=== PATIENT | female | born 1970 | race Caucasian/White ===

== ENCOUNTER → 2016-11-05 | Outpatient (CLI) | payer BC ==
[2016-11-05 17:01] LABS: BASO ABS # 0.08 K/uL (0-0.2); COMPLETE YES; EOS % 2.7 %; HEMATOCRIT 41.2 % (37-47); IG% 0.1 %; LYMPH % 29.4 %; LYMPH ABS # 2.29 K/uL (1.2-3.4); MEAN CELL VOLUME 90.4 fL (80-100); MEAN CORPUSCULAR HEMOGLOBIN 30.7 pg (25-34); MEAN PLATELET VOLUME 11.4 fL (7.4-10.4); MONO % 7.6 %; NEUT % 59.2 %; PLATELET COUNT 231 K/uL (130-400); RED BLOOD COUNT 4.56 M/uL (4.2-5.4)
[2016-11-05 17:07] LABS: ALT/SGPT 18 U/L (12-78); BLOOD UREA NITROGEN 7 mg/dl (7-18); BUN/CREATININE RATIO 8.3 (10-20); C-REACTIVE PROTEIN < 0.29 mg/dl (0-0.29); CARBON DIOXIDE 29 mmol/L (21-32); CHLORIDE 108 mmol/L (98-107); CREATININE 0.89 mg/dl (0.60-1.20); GLUCOSE 78 mg/dl (70-99); POTASSIUM 3.8 mmol/L (3.5-5.1); SODIUM 140 mmol/L (136-145); URIC ACID 3.6 mg/dl (2.6-7.2)
[2016-11-05 17:16] LABS: ALB/GLOB RATIO 1.1 (0.9-2); ALKALINE PHOSPHATASE 58 U/L (45-117); AST/SGOT 13 U/L (15-37); RHEUMATOID FACTOR < 10.0 U/mL (0-15); THYROID STIMULATING HORMONE 0.565 uIu/ml (0.300-4.500)
[2016-11-05 21:31] LABS: LYME DISEASE AB IGG NEG (NEG); LYME DISEASE AB IGM NEG (NEG)
[2016-11-11 18:18] LABS: CYCLIC CITRULLINATED PEPT IGG <16 UNITS (<20)
== END | disposition home or self-care (01) ==
LOC: C.LABBC 13:09
PROVIDERS: ATTEND Nurse Practitioner Family
DX: R61 Generalized hyperhidrosis (principal); M25.539 Pain in unspecified wrist

== ENCOUNTER → 2016-11-13 | Outpatient (CLI) | payer BC | END | disposition home or self-care (01) | LOC: C.LAB1850 16:12 | PROVIDERS: ATTEND Nurse Practitioner Family | DX: E28.0 Estrogen excess (principal) ==

== ENCOUNTER → 2016-11-28 | Outpatient (CLI) | payer BC | END | disposition home or self-care (01) | LOC: C.PAPS 15:18 | PROVIDERS: ATTEND Obstetrics & Gynecology | DX: Z01.419 Encounter for gynecological examination (general) (routine) without abnormal findings (principal) ==

== ENCOUNTER → 2016-12-15 | Outpatient (CLI) | payer BC | END | disposition home or self-care (01) | LOC: C.LABBC 08:40 | PROVIDERS: ATTEND Obstetrics & Gynecology | DX: E28.0 Estrogen excess (principal) ==

== ENCOUNTER → 2017-02-05 | Outpatient (CLI) | payer BC | END | disposition home or self-care (01) | LOC: C.LABBC 14:22 | PROVIDERS: ATTEND Nurse Practitioner Family | DX: R61 Generalized hyperhidrosis (principal) ==

== ENCOUNTER → 2017-04-02 | Outpatient (CLI) | payer BC ==
[2017-04-07 21:31] LABS: BEEF CLASS 0; BEEF IGE <0.10 KU/L; CHOCOLATE CLASS 0; CHOCOLATE IGE <0.10 KU/L; CLAM CLASS 0; CLAM IGE <0.10 KU/L; CORN CLASS 0; CORN IGE <0.10 KU/L; CRAB CLASS 0; CRAB IGE <0.10 KU/L; EGG MIX CLASS 0; EGG MIX IGE <0.10 KU/L; GLIADIN DEAMIDATED IgA AB 3 UNITS (<20); GLIADIN DEAMIDATED IgG AB 3 UNITS (<20); LOBSTER CLASS 0; LOBSTER IGE <0.10 KU/L; PEANUT IGE <0.10 KU/L; PORK CLASS 0; PORK IGE <0.10 KU/L; RETICULIN IgA AB Negative (Negative); SHRIMP CLASS 0; SOY CLASS 0; SOY IGE <0.10 KU/L; WHEAT CLASS 0/1; WHEAT IGE 0.12 KU/L
== END | disposition home or self-care (01) ==
LOC: C.LAB1850 16:08
PROVIDERS: ATTEND Dermatology
DX: R21 Rash and other nonspecific skin eruption (principal)

== ENCOUNTER → 2017-04-02 | Outpatient (CLI) | payer BC | END | disposition home or self-care (01) | LOC: C.LABSPEC 12:55 | PROVIDERS: ATTEND Dermatology | DX: R21 Rash and other nonspecific skin eruption (principal) ==

== ENCOUNTER 2018-01-14 11:15 | Emergency (ER) | payer BC ==
[~2018-01-14] VITALS: Ht 167.6 cm; Wt 56.0 kg
[2018-01-14 11:43] VITALS: TEMP 36.7; Ht 167.6 cm; Wt 56.0 kg
[2018-01-14 12:17] LABS: BASO % 0.4 %; BASO ABS # 0.04 K/uL (0-0.2); EOS % 0.6 %; EOS ABS # 0.06 K/uL (0-0.5); HEMATOCRIT 43.8 % (37-47); HEMOGLOBIN 14.8 g/dL (12.0-16.0); IG# 0.04 K/uL (0.00-0.02); LYMPH % 10.7 %; LYMPH ABS # 1.03 K/uL (1.2-3.4); MEAN CELL VOLUME 89.9 fL (80-100); MEAN CORPUSCULAR HEMOGLOBIN 30.4 pg (25-34); MEAN CORPUSCULAR HGB CONC 33.8 g/dl (32-36); MEAN PLATELET VOLUME 10.7 fL (7.4-10.4); MONO % 4.4 %; MONO ABS # 0.42 K/uL (0.11-0.59); NEUT % 83.5 %; NEUT ABS # 8.05 K/uL (1.4-6.5); PLATELET COUNT 225 K/uL (130-400); RED CELL DISTRIBUTION WIDTH CV 13.5 % (11.5-14.5); RED CELL DISTRIBUTION WIDTH SD 44.3 fL (36.4-46.3); WHITE BLOOD COUNT 9.64 K/uL (4.8-10.8)
[2018-01-14] MEDS ORDERED: DiphenhydrAMINE HCL 50 MG/ML VIAL IV STA (12:49)
[2018-01-14] MEDS ORDERED: SODIUM CHLORIDE 0.9% 1000ML 2,000 ML IV STA (12:49)
[2018-01-14] MEDS ORDERED: METOCLOPRAMIDE HCL INJ 5 MG/ML 2 ML VIAL IV STA (12:49)
--- NOTE | 2018-01-14 12:59 | EMERGENCY ROOM VISIT NOTE ---
History Report prepared by Riana: Clement Correa Under the Supervision of: Dr. Markel Juárez M.D. First contact with patient: 12:45 Chief Complaint: VERTIGO Stated Complaint: NAUSEA,VOMITING,VERTIGO Nursing Triage Summary: Pt reports hx of vertigo. Dizziness, n/v/, mild h/a started this morning. History of Present Illness The patient is a 47 year old female who presents to the Emergency Room with complaints of worsening vertigo symptoms such as dizziness, nausea, and vomiting starting this morning when she woke up. The patient states that she has a history of vertigo in the past, though she does not take any medications for her vertigo. She denies any fever, cough, congestion, neck pain, and burning with urination. The patient states that her stools have been softer than usual recently. She notes that she has been getting chills. The patient states that she was going well yesterday, and she did not have any dizziness. She reports that she had headaches earlier in the week, though she attributed that to seasonal allergies, and she states that she has a history of occasional migraines. The patient notes that her last menstrual cycle was a month ago. She states that she is currently on Effexor and Celebrex for depression and anxiety. Source of History: patient Onset: this morning when she woke up Position: other (generalized) Quality: other (vertigo symptoms) Timing: worsening Associated Symptoms: + chills, + nausea, + vomiting, No fevers, No cough, No neck pain, No urinary symptoms Note: Associated symptoms: dizziness Review of Systems See HPI for pertinent positives and negatives. A total of ten systems were reviewed and were otherwise negative. Past Medical & Surgical Medical Problems: (1) Anxiety (2) Depression (3) Vertigo Social History Smoking Status: Current Every Day Smoker Marital Status: single Occupation Status: employed Current/Historical Medications Scheduled Celecoxib (Celebrex), 100 MG PO DAILY Ondasetron Odt (Zofran Odt), 4 MG SL Q6H Venlafaxine Hcl (Effexor), 37.5 MG PO DAILY Scheduled PRN Meclizine Hcl (Meclizine Hcl), 25 MG PO TID PRN for Dizziness Allergies Coded Allergies: No Known Allergies (Unverified , 01/14/18) Physical Exam Vital Signs Date Time Temp Pulse Resp B/P (MAP) Pulse Ox O2 Delivery O2 Flow Rate FiO2 01/14/18 16:51 89 20 103/62 97 01/14/18 15:28 81 18 109/66 97 Room Air 01/14/18 13:49 75 20 98/58 97 Room Air 01/14/18 12:26 78 01/14/18 12:17 77 18 120/71 95 Room Air 01/14/18 11:43 36.7 90 18 129/75 97 Room Air Physical Exam GENERAL: Awake, alert, uncomfortable-appearing, in no distress HENT: Normocephalic, atraumatic. Oropharynx unremarkable. Dry mucous membranes. EYES: Unilateral nystagmus to the left. Reproducible symptoms with range of motion of the head. Normal conjunctiva. Sclera non-icteric. NECK: Supple. No nuchal rigidity. FROM. No JVD. RESPIRATORY: Clear to auscultation. CARDIAC: Regular rate, normal rhythm. Extremities warm and well perfused. Pulses equal. ABDOMEN: Soft, non-distended. No tenderness to palpation. No rebound or guarding. No masses. RECTAL: Deferred. MUSCULOSKELETAL: Chest examination reveals no tenderness. The back is symmetrical on inspection without obvious abnormality. There is no CVA tenderness to palpation. No joint edema. LOWER EXTREMITIES: Calves are equal size bilaterally and non-tender. No edema. No discoloration. NEURO: Normal sensorium. No sensory or motor deficits noted. Normal cerebellar function with [id number], alternating palms, [id number]. SKIN: No rash or jaundice noted. Medical Decision & Procedures Laboratory Results 01/14/18 12:04 Red Blood Count 4.87, Mean Corpuscular Volume 89.9, Mean Corpuscular Hemoglobin 30.4, Mean Corpuscular Hemoglobin Concent 33.8, Mean Platelet Volume 10.7, Neutrophils (%) (Auto) 83.5, Lymphocytes (%) (Auto) 10.7, Monocytes (%) (Auto) 4.4, Eosinophils (%) (Auto) 0.6, Basophils (%) (Auto) 0.4, Neutrophils # (Auto) 8.05, Lymphocytes # (Auto) 1.03, Monocytes # (Auto) 0.42, Eosinophils # (Auto) 0.06, Basophils # (Auto) 0.04 01/14/18 12:04 01/14/18 13:31 Test 01/14/18 12:04 01/14/18 13:31 01/14/18 13:47 White Blood Count 9.64 K/uL (4.8-10.8) Red Blood Count 4.87 M/uL (4.2-5.4) Hemoglobin 14.8 g/dL (12.0-16.0) Hematocrit 43.8 % (37-47) Mean Corpuscular Volume 89.9 fL (80-100) Mean Corpuscular Hemoglobin 30.4 pg (25-34) Mean Corpuscular Hemoglobin Concent 33.8 g/dl (32-36) Platelet Count 225 K/uL (130-400) Mean Platelet Volume 10.7 fL (7.4-10.4) Neutrophils (%) (Auto) 83.5 % Lymphocytes (%) (Auto) 10.7 % Monocytes (%) (Auto) 4.4 % Eosinophils (%) (Auto) 0.6 % Basophils (%) (Auto) 0.4 % Neutrophils # (Auto) 8.05 K/uL (1.4-6.5) Lymphocytes # (Auto) 1.03 K/uL (1.2-3.4) Monocytes # (Auto) 0.42 K/uL (0.11-0.59) Eosinophils # (Auto) 0.06 K/uL (0-0.5) Basophils # (Auto) 0.04 K/uL (0-0.2) RDW Standard Deviation 44.3 fL (36.4-46.3) RDW Coefficient of Variation 13.5 % (11.5-14.5) Immature Granulocyte % (Auto) 0.4 % Immature Granulocyte # (Auto) 0.04 K/uL (0.00-0.02) Anion Gap 4.0 mmol/L (3-11) Est Creatinine Clear Calc Drug Dose 80.5 ml/min Estimated GFR () 106.4 Estimated GFR (Non- 91.8 BUN/Creatinine Ratio 17.1 (10-20) Calcium Level 9.0 mg/dl (8.5-10.1) Total Bilirubin 0.5 mg/dl (0.2-1) Alanine Aminotransferase (ALT/SGPT) 22 U/L (12-78) Alkaline Phosphatase 57 U/L (45-117) Total Protein 8.0 gm/dl (6.4-8.2) Albumin 3.9 gm/dl (3.4-5.0) Globulin 4.1 gm/dl (2.5-4.0) Albumin/Globulin Ratio 1.0 (0.9-2) Aspartate Amino Transf (AST/SGOT) 12 U/L (15-37) Urine Color YELLOW Urine Appearance CLEAR (CLEAR) Urine pH 8.5 (4.5-7.5) Urine Specific [place] 1.016 (1.000-1.030) Urine Protein NEG (NEG) Urine Glucose (UA) NEG (NEG) Urine Ketones TRACE (NEG) Urine Occult Blood 1+ (NEG) Urine Nitrite NEG (NEG) Urine Bilirubin NEG (NEG) Urine Urobilinogen NEG (NEG) Urine Leukocyte Esterase NEG (NEG) Urine WBC (Auto) 1-5 /hpf (0-5) Urine RBC (Auto) 5-10 /hpf (0-4) Urine Hyaline Casts (Auto) 1-5 /lpf (0-5) Urine Epithelial Cells (Auto) >30 /lpf (0-5) Urine Bacteria (Auto) 1+ (NEG) Urine Test NEG (NEG) Date/Time Source Procedure Growth Status 01/14/18 13:47 Urine , Clean Catch Urine Culture - Final MORE THAN THREE TYPES OF ORGANISMS MD... Complete Laboratory results reviewed by me Medications Administered Medications (Trade) Dose Ordered Sig/Franci Route Start Time Stop Time Status Last Admin Dose Admin Sodium Chloride 2,000 ml @ 999 mls/hr Q2H1M STAT IV 01/14/18 12:49 01/14/18 14:49 DC 01/14/18 13:03 999 MLS/HR Metoclopramide HCl (Reglan Inj) 10 mg NOW STAT IV 01/14/18 12:49 01/14/18 12:52 DC 01/14/18 13:03 10 MG Diphenhydramine HCl (Benadryl Inj) 25 mg NOW STAT IV 01/14/18 12:49 01/14/18 12:52 DC 01/14/18 13:03 25 MG ECG Per My Interpretation Indication: nausea, other (dizziness) Rate (beats per minute): 73 Rhythm: normal sinus Findings: no acute ischemic change, other (normal axis) ED Course 1245: The patient was evaluated in room A11. A complete history and physical exam was performed. 1550: I reevaluated the patient. Discussed results and discharge instructions: she verbalized understanding and agreement. The patient is ready for discharge. Medical Decision I reviewed the patient's past medical history, medications, and the nursing notes as described above. Differential diagnosis: Etiologies such as benign positional vertigo, dehydration, hypovolemia, anemia, tumor, infection, hypoglycemia, electrolyte abnormalities, cardiac sources, intracerebral event, toxicologic, neurologic, as well as others were entertained. The patient is a 47-year-old woman with a past medical history of vertigo who presents emergency department with vertigo per hpi. Arrival the patient is uncomfortable but no acute distress, afebrile stable vital signs. On exam the patient has unilateral nystagmus to the left. TMs are clear. Symptoms reproducible with head movements. Otherwise patient is neuro intact including normal cerebellar function with [id number], alternating palms, heel-to- patel. Labs unremarkable. Patient feeling improved after IV fluids, Reglan, Benadryl. Able to ambulate without difficulty. Given that the patient has prior history of vertigo with resolution of her symptoms with treatment no indication for head imaging at this time. Findings and plan for follow-up reviewed with patient. Patient agreeable and d/c'd per discharge instructions. Medication Reconcilliation Current Medication List: was personally reviewed by me Blood Pressure Screening Patient's blood pressure: Normal blood pressure Impression Primary Impression: Vertigo Scribe Attestation The scribe's documentation has been prepared under my direction and personally reviewed by me in its entirety. I confirm that the note above accurately reflects all work, treatment, procedures, and medical decision making performed by me. Departure Information Dispostion Home / Self-Care Prescriptions Ondasetron Odt (ZOFRAN ODT) 4 Mg Tab 4 MG SL Q6H for Nausea, #10 TAB Prov: Markel Juárez M.D. 01/14/18 Meclizine Hcl (MECLIZINE HCL) 25 Mg Tab 25 MG PO TID Y for Dizziness, #21 TAB Prov: Markel Juárez M.D. 01/14/18 Referrals Ramone Ann III, CRNP (PCP) Forms HOME CARE DOCUMENTATION FORM, IMPORTANT VISIT INFORMATION, WORK / SCHOOL INSTRUCTIONS Patient Instructions ED BPV Vertigo, ED Vertigo Unspecified, My [facility] Additional Instructions Please follow up with your primary care physician in the next 1-3 days for re- evaluation. You likely have peripheral vertigo. Otherwise, your exam, EKG, and lab results did not show signs of an emergent condition at this time. Meclizine as needed for vertigo symptoms. Acetaminophen or ibuprofen for pain and fevers as needed. Zofran as needed for nausea. Drink plenty of fluids to ensure hydration. Return to the emergency department for worsening symptoms as described in the accompanying instructions.
[2018-01-14 13:03] LABS: ALBUMIN 3.9 gm/dl (3.4-5.0); CREATININE 0.78 mg/dl (0.60-1.20)
[2018-01-14 14:10] LABS: POTASSIUM 3.8 mmol/L (3.5-5.1)
[2018-01-14] MEDS ORDERED: EFF/375 PO (14:18)
[2018-01-14] MEDS ORDERED: CLB100 PO (14:18)
[2018-01-14] MEDS ORDERED: ONDA4TAB10 SL (15:58)
[2018-01-14] MEDS ORDERED: MECL1TAB42 PO (15:58)
[2018-01-14 16:51] VITALS: BP 103/62; PULSE 89; O2SAT 97
== END 2018-01-14 16:52 | disposition home or self-care (01) ==
LOC: C.EDB 11:16 → C.EDA 16:52
DX: R42 Dizziness and giddiness (principal); F41.9 Anxiety disorder, unspecified; F32.9 Major depressive disorder, single episode, unspecified; F17.200 Nicotine dependence, unspecified, uncomplicated